=== PATIENT | male | born 1965 ===

== ENCOUNTER 2016-12-21 06:31 | Day surgery (SDC) | payer BC ==
[2016-12-19 13:48] VITALS: BMI 29.8
[2016-12-21 07:14] VITALS: RESP 18
[2016-12-21 07:57] LABS: BASO # 0.04 K/mm3 (0.0-2.0); BASO % 0.6 % (0.0-3.0); EOS # 0.2 (0.0-0.7); EOS % 2.3 % (1.5-5.0); GRAN # 4.6 (1.4-6.5); GRAN % 66.3 % (50.0-68.0); HEMATOCRIT 44.2 % (42.0-52.0); LYMPH # 1.4 (1.2-3.4); LYMPH % 20.3 % (22.0-35.0); MEAN CELL VOLUME 86.2 fl (80.0-105.0); MEAN CORPUSCULAR HEMOGLOBIN 31.2 pg (25.0-35.0); MEAN CORPUSCULAR HGB CONC 36.2 g/dl (31.0-37.0); MEAN PLATELET VOLUME 11.2 fl (7.0-11.0); MONO # 0.7 (0.1-0.6); MONO % 10.5 % (1.0-6.0); RED CELL DISTRIBUTION WIDTH 12.8 % (11.5-14.5); WHITE BLOOD COUNT 6.9 10^3/ul (4.5-11.0)
[2016-12-21 08:09] LABS: INR 1.07 (0.93-1.08); PARTIAL THROMBOPLASTIN TIME 27.6 Seconds (23.7-30.8)
[2016-12-21 08:11] LABS: BLOOD UREA NITROGEN 24 mg/dL (7-21); CALCIUM 9.3 mg/dL (8.4-10.5); CARBON DIOXIDE 26 mmol/L (21-33); CHLORIDE 106 mmol/L (98-107); CHOLESTEROL 213 mg/dL (130-200); GFR AFRICAN-AMERICAN > 60; GLUCOSE,RANDOM 103 mg/dL (70-110); POTASSIUM 4.4 mmol/L (3.6-5.0); SODIUM 142 mmol/L (132-148)
[2016-12-21] MEDS ORDERED: Iohexol 350mgl/ml 50 ML ONE (10:06)
[2016-12-21] MEDS ORDERED: Lidocaine 2% Inj (20ml) ONE (10:06)
[2016-12-21] MEDS ORDERED: Phenylephrine 10 mg/ml Inj ONE (10:08)
[2016-12-21] MEDS ORDERED: Midazolam 2 MG/2 ML VIAL ONE ×2 (10:09→10:15)
[2016-12-21] MEDS ORDERED: Sodium Chloride 0.9% 1,000 ML IV SCH (11:15)
--- NOTE | 2016-12-21 16:37 | CARD ---
APPROVED REPORT EKG Measurement Heart [id number] NM [id number] <Conclusion> Normal sinus rhythm Normal ECG
[2016-12-21 17:22] VITALS: BP 118/70; PULSE 72; TEMP 98; O2SAT 96
--- NOTE | 2016-12-21 20:45 | CARDCATH ---
PROCEDURE DATE: 12/21/2016 HISTORY: The patient is a 51-year-old male who presents for cardiac catheterization. The patient during his stress test developed classic exertional anginal symptoms in which he has been experiencing over the past several weeks. His cardiac risk factors include a strong family history for CAD with multiple family members with acute myocardial infarction. 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 PROCEDURE: Left heart catheterization with coronary arteriography and left ventriculogram. The right femoral artery was cannulated with 6-Bar[place] sheath. There were no complications. Findings on catheterization revealed a left ventricle that was within normal limits. Estimated ejection fraction was 60%. His coronary anatomy revealed a right dominant circulation. The RCA revealed intimal irregularities without significant stenoses. The left main artery was unremarkable. The LAD and diagonal vessels revealed mild intimal irregularities without significant stenoses. Circumflex artery and obtuse marginal branches were free of significant disease. Angio-Seal was used to close the femoral artery site. The patient tolerated the procedure well. In summary, the procedure revealed mild intimal irregularities in his coronary tree without significant stenoses. LV function is within normal limits. PLAN: Given these findings, the patient's chest pain is not of cardiac origin. However, he needs to continue baby aspirin daily and undergo a strict cardiac risk reduction program. He will follow with Dr. Napoles to continue with investigation to noncardiac source of chest pain. Ezequiel Riley MD
== END 2016-12-21 17:35 | disposition home or self-care (01) ==
LOC: CATH 06:31
PROVIDERS: ATTEND Internal Medicine Cardiovascular Disease
DX: R07.89 Other chest pain (principal); Z82.49 Family history of ischemic heart disease and other diseases of the circulatory system
CPT/HCPCS: 36415; 80048; 80061; 85025; 85610; 85730; 86850; 86900; 93005; 93458; 99152; 99153; C1760; C1769; C2629; J1644; J2250; J3010; J7040 ×2; Q9967